=== PATIENT | female | born 1955 | race Caucasian/White ===

== ENCOUNTER 2018-08-17 06:31 | Day surgery (SDC) | payer OTHER ==
--- NOTE | 2018-08-16 13:27 | PREOPHP ---
DATE OF ADMISSION: 08/17/2018 HISTORY OF PRESENT ILLNESS: This 63-year-old patient is admitted for elective cataract surgery of th e left eye. The patient previously has had retinal tear and vitreous hemorrhage requiring vitrectomy to be performed on the left eye. This caused the patient to develop a secondary cataract in that ey e. The patient denies prior history of eye disease or injury. PAST MEDICAL HISTORY: The patient does have a history of diabetes mellitus, systemic hypertension, G ERD, hypercholesterolemia and problems with her bladder. CURRENT LIST OF MEDICATIONS: Includes: 1. Jardiance. 2. Aspirin (discontinued 1 week prior to surgery). 3. Amlodipine. 4. Atenolol. 5. Benazepril. 6. Furosemide. 7. Folic acid. 8. Omeprazole. 9. Simvastatin. 10. Oxybutynin. ALLERGIES: THE PATIENT IS ALLERGIC TO: 1. SULFACETAMIDE. 2. PENICILLIN. 3. BACTRIM. PHYSICAL EXAMINATION: The visual acuity with best correction is 20/25 in the right eye and 20/50 in the left eye. Slit lamp examination reveals nuclear sclerotic cataract in the left eye. Applanation tonometry is 17 mmHg. Examination of the retina does not reveal the presence of any diabetic retino brandt. DIAGNOSIS: Nuclear sclerotic cataract, left eye. PLAN: Cataract extraction with lens implant, left eye. The risks and alternatives to the surgery blue ve been discussed with the patient as well as the hope for improvement of visual acuity leading to gr eater ability to perform activities of daily living. Dictated By: ALVAREZ GODINEZ/AMANDA Conf#: [id number] DID#: [id number]
[~2018-08-17] VITALS: Ht 157.5 cm; Wt 81.7 kg
[2018-08-17] VITALS (9 sets, daily range): BP systolic 89–106; BP diastolic 55–70; PULSE 52–67; RESP 16–18; Ht 157.5 cm; Wt 81.7 kg
[~2018-08-17 06:31] MED LIST: AMLO-147 PO; ATEN-51 PO; BENA20TA4 PO; CYCLOPENTOLATE/PHENYLEPH 2 ML OPH OPER SCH; DICLOFENAC 0.1% 2.5 ML OPH OPER SCH; DOCO100C PO; FOLI-49 PO; FURO40TA4 PO; MOXIFLOXACIN 0.5% 3 ML OPH OPER SCH; OMEG-135 PO; OMEP20CA16 PO; OXYB5TAB7 PO; SIMV5TAB14 PO; TROPICAMIDE 1% 15 ML OPH OPER SCH; [UNRECOGNIZED DRUG - CODE] PO
[2018-08-17] MEDS: SOD CHLORIDE 0.9% 1,000 ML IV SCH ×2 (07:00→09:17)
[2018-08-17] MEDS ORDERED: AMLO5TAB4 PO (08:00)
[2018-08-17] MEDS ORDERED: ATEN-51 PO (08:00)
[2018-08-17] MEDS ORDERED: BENA20TA4 PO (08:00)
[2018-08-17] MEDS ORDERED: EMPA10TA PO (08:01)
[2018-08-17] MEDS ORDERED: FOLI-49 PO (08:01)
[2018-08-17] MEDS ORDERED: ASPI81TA52 PO (08:01)
[2018-08-17] MEDS ORDERED: OMEP40CA6 PO (08:02)
[2018-08-17] MEDS ORDERED: SIMV20TA PO (08:02)
[2018-08-17] MEDS ORDERED: OXYB5TAB7 PO (08:03)
[2018-08-17] MEDS ORDERED: TETRACAINE 0.5% 4 ML OPH ONE (08:18)
[2018-08-17] MEDS ORDERED: DEXAMETHASONE 4 MG/ML 1 ML INJ ONE (08:18)
[2018-08-17] MEDS ORDERED: GENTAMICIN 80 MG INJ ONE (08:18)
[2018-08-17] MEDS ORDERED: NA HYALURONATE/CHONDROITIN 0.5 ML SYG ONE (08:18)
[2018-08-17] MEDS ORDERED: LIDOCAINE 4% (MPF) 5 ML INJ ONE (08:18)
[2018-08-17] MEDS ORDERED: CARBACHOL 0.01% 1.5 ML OPH INJ ONE (08:18)
--- NOTE | 2018-08-17 08:23 | PREAC ---
Date/Time of Note Date/Time of Note DATE: 08/17/18 TIME: 08:21 Anesthesia Eval and Record Evaluation Time Pre-Procedure Interview DATE: 08/17/18 TIME: 08:21 Age 63 Sex female NPO: 8 hrs Preoperative diagnosis left cataract Planned procedure left cataract extraction Past Medical History Past Medical History: Includes Cardio: HTN, Dyslipidemia Endo: Diabetes Neuro: CVA Surgery & Anesthesia Issues No known issue Meds Anticoagulation: No Beta Reggie within 24 hr: Yes Reported Medications Oxybutynin Chloride* (Ditropan*) 5 Mg Tab, 5 MG PO BID, TAB 08/17/18 Simvastatin* (Zocor*) 20 Mg Tablet, 20 MG PO QHS, #30 TAB 08/17/18 Omeprazole* (Omeprazole*) 40 Mg Capsule.dr, 40 MG PO DAILY, #30 CAP 08/17/18 Folic Acid* (Folic Acid*) 1 Mg Tablet, 1 MG PO DAILY, TAB 08/17/18 Empagliflozin (Jardiance) 10 Mg Tablet, 10 MG PO DAILY, TAB 08/17/18 Aspirin (Low Dose Aspirin) 81 Mg Tablet.dr, 81 MG PO DAILY, #30 TAB 08/17/18 Amlodipine Besylate* (Norvasc*) 5 Mg Tablet, 5 MG PO BID, TAB 08/17/18 Benazepril Hcl* (Benazepril Hcl*) 20 Mg Tablet, 20 MG PO DAILY, #30 TAB 08/17/18 Atenolol* (Atenolol*) 25 Mg Tablet, 25 MG PO DAILY, #30 TAB 08/17/18 Discontinued Reported Medications [place]-3/Dha/Epa/Fish Oil (Epa-Dha 720 Softgel) 1 Each Capsule, 360 MG PO DAILY 12/12/14 Docosahexanoic Acid (DHA) 100 Mg Capsule, 240 MG PO DAILY 12/12/14 Fish Oil* (Fish Oil*) 1,000 Mg Cap, 1200 MG PO BID, CAP 12/12/14 Folic Acid* (Folic Acid*) 1 Mg Tablet, 1 MG PO DAILY, TAB 12/12/14 Furosemide* (Furosemide*) 40 Mg Tablet, 40 MG PO DAILY, TAB 12/12/14 Benazepril Hcl* (Benazepril Hcl*) 20 Mg Tablet, 20 MG PO DAILY, TAB 12/12/14 Simvastatin* (Simvastatin*) 5 Mg Tablet, 5 MG PO HS, TAB 12/12/14 Atenolol* (Atenolol*) 25 Mg Tablet, 25 MG PO DAILY, TAB 12/12/14 Oxybutynin Chloride* (Ditropan*) 5 Mg Tablet, 5 MG PO BID, TAB 12/12/14 Omeprazole* (Omeprazole*) 20 Mg Capsule.dr, 20 MG PO DAILY, CAP 12/12/14 Amlodipine Besylate* (Amlodipine Besylate*) 10 Mg Tablet, 10 MG PO DAILY, TAB 12/12/14 Current Medications Diclofenac Sodium (Voltaren 0.1%) 1 drop Q5 MIN X 3 OPER Last administered on 08/17/18at 07:32; Admin Dose 1 DROP; Start 08/17/18 at 06:30; Stop 08/17/18 at 20:00 Tropicamide (Mydriacyl 1%) 1 drop Q5 MIN X3 OPER Last administered on 08/17/18at 07:31; Admin Dose 1 DROP; Start 08/17/18 at 06:30; Stop 08/17/18 at 20:00 Moxifloxacin HCl (Vigamox) 1 drop Q5 MIN X 3 OPER Last administered on 08/17/18at 07:32; Admin Dose 1 DROP; Start 08/17/18 at 06:30; Stop 08/17/18 at 20:00 Cyclopentolate/ Phenylephrine (Cyclomydril Oph 2 ml) 1 drop Q5 MIN X 3 OPER Last administered on 08/17/18at 07:32; Admin Dose 1 DROP; Start 08/17/18 at 06:30; Stop 08/17/18 at 20:00 Sodium Chloride 1,000 ml @ 25 mls/hr Q24H IV Last administered on 08/17/18at 07:00; Admin Dose 25 MLS/HR; Start 08/17/18 at 06:30; Stop 08/17/18 at 20:00 Meds reviewed: Yes Allergies Coded Allergies: Penicillins (Verified Allergy, Unknown, 08/17/18) Sulfa (Sulfonamide Antibiotics) (Verified Allergy, Unknown, 08/17/18) erythromycin base (Verified Allergy, Unknown, 08/17/18) sulfamethoxazole (Verified Allergy, Unknown, 08/17/18) tetracycline (Verified Allergy, Unknown, 08/17/18) trimethoprim (Verified Allergy, Unknown, 08/17/18) Allergies Reviewed: Yes Labs/Studies Labs Reviewed: Reviewed by anesthesiologist test: N/A Pre-procedure Exam Last vitals Vital Signs Date Temp Pulse Resp B/P (MAP) Pulse Ox O2 O2 Flow FiO2 Time Delivery Rate 08/17/18 97.8 67 18 92/55 (67) 93 Room Air 08:01 Airway: Adequate mouth opening, Adequate thyromental dist Mallampati: Mallampati I Teeth: Normal Lung: Normal Heart: Normal ASA Physical Status ASA physical status: 3 Emergency: None Planned Anesthetic General/MAC: MAC Planned Pain Management Parenteral pain med Pre-operative Attestations Prior to commencing anesthesia and surgery, the patient was re-evaluated, there was verification of: *The patient's identity *The results of appropriate recent lab work and preoperative vital signs *The above evaluation not changing prior to induction *Anesthetic plan, risk benefits, alternative and complications discussed with patient/family; questions answered; patient/family understands, accepts and wishes to proceed. BALDEMAR LORENZO Aug 17, 2018 08:23
[2018-08-17] MEDS ORDERED: PROPOFOL 20 ML ONE (08:26)
[2018-08-17] MEDS ORDERED: LIDOCAINE 2% (SDV) 5 ML INJ ONE (08:26)
--- NOTE | 2018-08-17 09:17 | SIPON ---
Date/Time of Note Date/Time of Note DATE: 08/17/18 TIME: 09:16 Operative Report Preoperative Diagnosis nuclear cataract os Postoperative Diagnosis same Operation/Procedure Performed cataract extraction with lens implant os Surgeon alvarez izaguirre assistant auto center manager none Anesthesia: MAC Estimated blood loss: none Transfusion Required none Specimen none Grafts/Implants posterior chamber lens implant Complications none ALVAREZ IZAGUIRRE MD Aug 17, 2018 09:17
--- NOTE | 2018-08-17 09:20 | PAC ---
Date/Time of Note Date/Time of Note DATE: 08/17/18 TIME: 09:19 Post-Anesthesia Notes Post-Anesthesia Note Last documented vital signs Vital Signs Date Temp Pulse Resp B/P (MAP) Pulse Ox O2 O2 Flow FiO2 Time Delivery Rate 08/17/18 97.8 67 18 92/55 (67) 93 Room Air 0920 Activity: WNL Respiratory function: WNL Cardiovascular function: WNL Mental status: Baseline Pain reasonably controlled: Yes Hydration appropriate: Yes Nausea/Vomiting absent: Yes BALDEMAR LORENZO Aug 17, 2018 09:20
[2018-08-17] MEDS ORDERED: MEPERIDINE 25 MG INJ IV PRN (09:30)
[2018-08-17] MEDS ORDERED: LABETALOL HCL 20MG INJ IV PRN (09:30)
[2018-08-17] MEDS ORDERED: EPHEDrine SULFATE 50 MG/5 ML SYG IV PRN (09:30)
[2018-08-17] MEDS ORDERED: FENTAnyl 50 MCG/ML VIAL IV PRN ×3 (09:30)
[2018-08-17] MEDS ORDERED: OXYCODONE/ACETAMINOPHEN (5/325) TAB PO PRN ×2 (09:30)
[2018-08-17] MEDS ORDERED: hydrALAzine 20 MG INJ IV PRN (09:30)
[2018-08-17] MEDS ORDERED: ONDANSETRON 4 MG INJ IV PRN (09:30)
[2018-08-17] MEDS ORDERED: MIDAZOLAM 1 MG/ML 2 ML INJ IV PRN (09:30)
--- NOTE | 2018-08-17 09:32 | OPR ---
DATE OF OPERATION: 08/17/2018 PREOPERATIVE DIAGNOSIS: Nuclear sclerotic cataract, left eye. POSTOPERATIVE DIAGNOSIS: Nuclear sclerotic cataract, left eye. OPERATION PERFORMED: Cataract extraction with lens implant, left eye. SURGEON: Alvarez Izaguirre M.D. ANESTHESIOLOGIST: Dr. Torres. ANESTHESIA: Local standby. PROCEDURE: The patient was brought to the operating room and placed on the table with an IV in place and the patient attached to an monitoring analyst. Oxygen was given via face mask. After some intravenous sedation was administered, local anesthesia was given using Xylocaine 2% with epinephrine, mixed with Marcaine 0.5%. This was given in a lid block and retrobulbar injection. The patient was then prepped and draped in the usual sterile manner. A wire lid speculum was inserted between the lids of the left eye. A Superblade was used to enter th e anterior chamber at the corneoscleral limbus at the 10:30 o'clock position. A separate incision wa s made using a 3.0-mm keratome which entered the corneoscleral junction at the 12 o'clock position. Through this 3-mm opening, an irrigating cystotome was introduced into the anterior chamber. The romie mber was filled with Viscoat and an anterior capsulotomy was performed. Balanced salt solution was t hen used for hydrodissection of the lens. A phacoemulsification handpiece was then brought into the field and introduced into the anterior chamber. The lens nucleus was emulsified using a deep groove and cracking the nucleus into quadrants. Following this, each quadrant was aspirated and emulsified at the pupillary margin. After this was completed, the irrigation/aspiration handpiece was brought to the field, introduced in to the posterior chamber, and the lens cortical material was removed. When this was completed, addit ional Viscoat was injected into the anterior and posterior chambers. The 3-mm opening had its internal lips enlarged, and then the posterior chamber intraocular lens bobby uring 19.5 diopters ([employer] Model LI61AO) was then injected into the posterior c hamber using the lens injector system. After the leading haptic was introduced into the capsular bag and the lens optic was present in the center of the eye, the injector was removed and the trailing h aptic was grasped with non-toothed forceps and introduced into the capsular fold superiorly. A [place] ey hook was then used to rotate the intraocular lens so that the lips were oriented in the horizontal meridian. One 10-0 nylon suture was placed across the wound. Prior to tying, the irrigation/aspiration handpiece was reintroduced into the anterior chamber to rem ove the Viscoat. Miochol was instilled to constrict the pupil, and then the 10-0 nylon suture was ti ed. The ends were cut short and then the knot was buried. Then, 0.5 mL of dexamethasone and 0.5 mL of gentamicin were injected into the sub-Tenon space in the inferior fornix. Ciloxan drops were then placed on the surface of the eye. The speculum was removed and a patch was applied. The patient then left the operating room in satisfactory condition. Dictated By: ALVAREZ GODINEZ/AMANDA Conf#: [id number] DID#: [id number] CC: ALVAREZ IZAGUIRRE MD;*EndCC*
== END 2018-08-17 10:52 | disposition home or self-care (01) ==
LOC: SDS 06:31
PROVIDERS: ATTEND Ophthalmology
DX: H25.12 Age-related nuclear cataract, left eye (principal); I10 Essential (primary) hypertension; E11.9 Type 2 diabetes mellitus without complications; Z86.73 Personal history of transient ischemic attack (TIA), and cerebral infarction without residual deficits; Z79.82 Long term (current) use of aspirin
CPT/HCPCS: 66984; 82962; J1100; J1580; V2632; Z7512; Z7610

== ENCOUNTER 2018-09-21 06:20 | Day surgery (SDC) | payer OTHER ==
--- NOTE | 2018-09-14 08:14 | PREOPHP ---
DATE OF ADMISSION: 09/14/2018 HISTORY OF PRESENT ILLNESS: This 63-year-old patient is admitted for elective removal of residual ca taract following surgery on the left eye 4 weeks ago. The patient underwent uneventful surgery. How ever, following surgery, it was noted that there was lens cortical material left in the left eye whic h was occluding the pupillary aperture and decreasing the patient's vision. The patient does not com plain of any pain or discomfort involving the left eye. The patient's systemic history is positive f or hypertension, hypercholesterolemia, and diabetes mellitus. CURRENT MEDICATIONS: Includes: 1. Atenolol. 2. Simvastatin. 3. Benazepril. 4. Jardiance. ALLERGIES: THERE ARE NO KNOWN ALLERGIES. PHYSICAL EXAMINATION: Visual acuity is 20/25 in the right eye and 20/400 in the left eye. Slit lamp examination of the right eye is entirely within normal limits. Examination of the left eye reveals a posterior chamber intraocular lens in appropriate position with the lens cortical material located behind the optic of the posterior chamber intraocular lens. Applanation tonometry is 12 mm. Examina tion of the retina is not possible due to the residual lens material. DIAGNOSIS: Retained lens cortical material, left eye. PLAN: Aspiration of lens cortical material, left eye. The risks and alternatives to the surgery hav e been discussed with the patient and the patient has opted to proceed with surgery in hopes of obtai rusty improved visual acuity leading to greater ability to perform activities of daily living. Dictated By: ALVAREZ GODINEZ/AMANDA Conf#: [id number] DID#: [id number]
[~2018-09-21] VITALS: Ht 154.9 cm; Wt 82.2 kg
[2018-09-21] VITALS (9 sets, daily range): BP systolic 91–107; BP diastolic 52–70; PULSE 60–72; RESP 16–29; Ht 154.9 cm; Wt 82.2 kg
[~2018-09-21 06:20] MED LIST changes: -AMLO-147 PO; +AMLO5TAB4 PO; +ASPI81TA52 PO; -DOCO100C PO; +EMPA10TA PO; -FURO40TA4 PO; -OMEG-135 PO; -OMEP20CA16 PO; +OMEP40CA6 PO; +SIMV20TA PO; -SIMV5TAB14 PO; +SOD CHLORIDE 0.9% 1,000 ML IV SCH; -[UNRECOGNIZED DRUG - CODE] PO
[2018-09-21] MEDS ORDERED: DICLOFENAC 0.1% 2.5 ML OPH OPER SCH (08:00)
[2018-09-21] MEDS ORDERED: MOXIFLOXACIN 0.5% 3 ML OPH OPER SCH (08:00)
[2018-09-21] MEDS ORDERED: CYCLOPENTOLATE/PHENYLEPH 2 ML OPH OPER SCH (08:00)
[2018-09-21] MEDS ORDERED: SOD CHLORIDE 0.9% 1,000 ML IV SCH (08:00)
[2018-09-21] MEDS ORDERED: TROPICAMIDE 1% 15 ML OPH OPER SCH (08:00)
--- NOTE | 2018-09-21 09:39 | HPN ---
Date/Time of Note Date/Time of Note DATE: 09/21/18 TIME: 09:39 Interval H&P Admission Note Pt. seen H&P reviewed: No system changes ALVAREZ IZAGUIRRE MD Sep 21, 2018 09:39
--- NOTE | 2018-09-21 09:44 | PREAC ---
Date/Time of Note Date/Time of Note DATE: 09/21/18 TIME: 09:42 Anesthesia Eval and Record Evaluation Time Pre-Procedure Interview DATE: 09/21/18 TIME: 09:42 Age 63 Sex female NPO: 8 hrs Preoperative diagnosis Lt eye lense residual Planned procedure Lt eye removal of lense residual Past Medical History Past Medical History: Includes Cardio: HTN, Dyslipidemia GI: GERD, Morbid obesity Surgery & Anesthesia Issues No known issue Meds Anticoagulation: Yes Beta Reggie within 24 hr: Yes Reported Medications Oxybutynin Chloride* (Ditropan*) 5 Mg Tab, 5 MG PO BID, TAB 08/17/18 Simvastatin* (Zocor*) 20 Mg Tablet, 20 MG PO QHS, #30 TAB 08/17/18 Omeprazole* (Omeprazole*) 40 Mg Capsule.dr, 40 MG PO DAILY, #30 CAP 08/17/18 Folic Acid* (Folic Acid*) 1 Mg Tablet, 1 MG PO DAILY, TAB 08/17/18 Empagliflozin (Jardiance) 10 Mg Tablet, 10 MG PO DAILY, TAB 08/17/18 Aspirin (Low Dose Aspirin) 81 Mg Tablet.dr, 81 MG PO DAILY, #30 TAB 08/17/18 Amlodipine Besylate* (Norvasc*) 5 Mg Tablet, 5 MG PO BID, TAB 08/17/18 Benazepril Hcl* (Benazepril Hcl*) 20 Mg Tablet, 20 MG PO DAILY, #30 TAB 08/17/18 Atenolol* (Atenolol*) 25 Mg Tablet, 25 MG PO DAILY, #30 TAB 08/17/18 Current Medications Diclofenac Sodium (Voltaren 0.1%) 1 drop Q5 MIN X 3 OPER Last administered on 09/21/18at 08:13; Admin Dose 1 DROP; Start 09/21/18 at 08:00 Tropicamide (Mydriacyl 1%) 1 drop Q5 MIN X3 OPER Last administered on 09/21/18at 08:14; Admin Dose 1 DROP; Start 09/21/18 at 08:00 Moxifloxacin HCl (Vigamox) 1 drop Q5 MIN X 3 OPER Last administered on 09/21/18at 08:13; Admin Dose 1 DROP; Start 09/21/18 at 08:00 Cyclopentolate/ Phenylephrine (Cyclomydril Oph 2 ml) 1 drop Q5 MIN X 3 OPER L ast administered on 09/21/18at 08:13; Admin Dose 1 DROP; Start 09/21/18 at 08:00 Sodium Chloride 1,000 ml @ 25 mls/hr Q24H IV Last administered on 09/21/18at 08:13; Admin Dose 25 MLS/HR; Start 09/21/18 at 08:00 Meds reviewed: Yes Allergies Coded Allergies: Penicillins (Verified Allergy, Unknown, 09/21/18) Sulfa (Sulfonamide Antibiotics) (Verified Allergy, Unknown, 09/21/18) erythromycin base (Verified Allergy, Unknown, 09/21/18) sulfamethoxazole (Verified Allergy, Unknown, 09/21/18) tetracycline (Verified Allergy, Unknown, 09/21/18) trimethoprim (Verified Allergy, Unknown, 09/21/18) Allergies Reviewed: Yes Labs/Studies Labs Reviewed: Reviewed by anesthesiologist Result Diagram: 09/21/18 0745 Laboratory Tests 09/21/18 07:45 test: N/A Studies: ECG Pre-procedure Exam Last vitals Vital Signs Date Temp Pulse Resp B/P (MAP) Pulse Ox O2 O2 Flow FiO2 Time Delivery Rate 09/21/18 97.6 71 16 104/57 93 Room Air 08:25 (73) Airway: Adequate mouth opening, Adequate thyromental dist Mallampati: Mallampati III Teeth: Normal Lung: Normal Heart: Normal ASA Physical Status ASA physical status: 3 Emergency: None Planned Anesthetic General/MAC: MAC Planned Pain Management Single shot nerve block, Parenteral pain med Pre-operative Attestations Prior to commencing anesthesia and surgery, the patient was re-evaluated, there was verification of: *The patient's identity *The results of appropriate recent lab work and preoperative vital signs *The above evaluation not changing prior to induction *Anesthetic plan, risk benefits, alternative and complications discussed with patient/family; questions answered; patient/family understands, accepts and wishes to proceed. JACOB JOSHI MD Sep 21, 2018 09:44
[2018-09-21] MEDS ORDERED: MIDAZOLAM 1 MG/ML 2 ML INJ ONE (09:45)
[2018-09-21] MEDS ORDERED: FENTAnyl 50 MCG/ML VIAL ONE (09:45)
[2018-09-21] MEDS ORDERED: PROPOFOL 20 ML ONE (10:16)
[2018-09-21] MEDS ORDERED: LIDOCAINE 2% (SDV) 5 ML INJ ONE (10:16)
[2018-09-21] MEDS ORDERED: GENTAMICIN 80 MG INJ ONE (10:26)
[2018-09-21] MEDS ORDERED: CARBACHOL 0.01% 1.5 ML OPH INJ ONE (10:26)
[2018-09-21] MEDS ORDERED: LIDOCAINE 4% (MPF) 5 ML INJ ONE (10:26)
[2018-09-21] MEDS ORDERED: NA HYALURONATE/CHONDROITIN 0.5 ML SYG ONE (10:26)
[2018-09-21] MEDS ORDERED: DEXAMETHASONE 4 MG/ML 1 ML INJ ONE (10:26)
--- NOTE | 2018-09-21 10:26 | SIPON ---
Date/Time of Note Date/Time of Note DATE: 09/21/18 TIME: 10:25 Operative Report Preoperative Diagnosis retained lesn cortical material od Postoperative Diagnosis same Operation/Procedure Performed aspiration of lens cortical material Surgeon alvarez izaguirre customer assistance associate none Anesthesia: MAC Estimated blood loss: none Transfusion Required none Specimen none Grafts/Implants none Complications none ALVAREZ IZAGUIRRE MD Sep 21, 2018 10:26
--- NOTE | 2018-09-21 10:26 | PAC ---
Date/Time of Note Date/Time of Note DATE: 09/21/18 TIME: 10:25 Post-Anesthesia Notes Post-Anesthesia Note Last documented vital signs Vital Signs Date Temp Pulse Resp B/P (MAP) Pulse Ox O2 O2 Flow FiO2 Time Delivery Rate 09/21/18 97.6 71 16 104/57 93 Room Air 08:25 (73) Activity: WNL Respiratory function: WNL Cardiovascular function: WNL Mental status: Baseline Pain reasonably controlled: Yes Hydration appropriate: Yes Nausea/Vomiting absent: Yes Comments BP:122/67, P:78, SPo2:100%, T:98,8 JACOB JOSHI MD Sep 21, 2018 10:26
[2018-09-21] MEDS ORDERED: FENTAnyl 50 MCG/ML VIAL IV PRN (10:30)
[2018-09-21] MEDS ORDERED: HYDROmorphONE 1 MG/5 ML IV SYRINGE IV PRN ×2 (10:30)
[2018-09-21] MEDS ORDERED: LABETALOL HCL 20MG INJ IV PRN (10:30)
[2018-09-21] MEDS ORDERED: ONDANSETRON 4 MG INJ IV PRN (10:30)
[2018-09-21] MEDS ORDERED: DIPHENHYDRAMINE 50 MG INJ IV PRN (10:30)
[2018-09-21] MEDS ORDERED: MEPERIDINE 25 MG INJ IV PRN (10:30)
--- NOTE | 2018-09-21 14:37 | OPR ---
DATE OF OPERATION: 09/21/2018 PREOPERATIVE DIAGNOSIS: Retained lens cortical material, left eye. POSTOPERATIVE DIAGNOSIS: Retained lens cortical material, left eye. OPERATION PERFORMED: Aspiration of lens cortical material, left eye. SURGEON: Alvarez Liu MD ANESTHESIOLOGIST: Nehemias Duke MD DESCRIPTION OF PROCEDURE: The patient was brought to the operating room 5 weeks after undergoing cat aract surgery of the left eye. The patient was noted during the postoperative period to have retaine d lens cortical material which after becoming hydrated by the aqueous humor became floppy and complet andreina coated the posterior capsule behind the lens implant. After a period of time, it was noted that this was not resolving on its own and therefore, it was decided to return to the operating room to as pirate the lens cortical material. The patient was brought to the operating room and then an eye gur guilherme attached to electrocardiogram monitoring, given oxygen via nasal cannula. After some intravenous sedation was administered, the patient received retrobulbar injection using lidocaine 4% given in li d block and retrobulbar injection. The patient was then prepped and draped in the usual sterile khan er. A speculum was inserted between the lids of the left eye. It was noted that the pupil had not d ilated beyond 4 mm and therefore access to the lens cortical material would be difficult without mech anically dilating the pupils beyond its current state. Three paracentesis incisions were made using a Superblade. These incisions were made through clear cornea at the 12, 3 and 9 o'clock positions. Through these openings, silicone iris hooks were inserted to retract the pupil enlarging the aperture and allowing for ability to access the lens cortical material behind the lens implant. Viscoat was injected into the anterior chamber and behind the pupil to allow for access. Two additional paracent esis incisions were made at the 11 and 1 o'clock positions through clear cornea using a Superblade. Through these openings, a bimanual technique was created with 1 port used for irrigation and the othe r port for aspiration. The aspirating handpiece was inserted with the tip placed posterior to the le ns optic and aspirating of the lens cortical material present throughout the posterior capsular area. At the end of this procedure, it was noted that the lens cortex was removed; however, there was dennys e fibrosis of the posterior lens capsule. It was decided not to attempt to do further aspiration and instead await for the postoperative inflammation to subside and then for patient to undergo YAG lase r capsulotomy. The 3 iris hooks were removed from the eye. It was noted that all the paracentesis i ncisions appeared to be watertight. The vitreous was aspirated from the anterior chamber. The specu lum was then removed and then 0.5 mL of and gentamicin and 0.5 mL of dexamethasone were injected thro ugh the lower lid into the peribulbar space. Following this, a Vigamox drops were placed on the eye and then the eye was patched and the patient left the operating room in satisfactory condition. Dictated By: ALVAREZ GODINEZ/AMANDA Conf#: [id number] DID#: [id number]
== END 2018-09-21 11:34 | disposition home or self-care (01) ==
LOC: SDS 06:20
PROVIDERS: ATTEND Ophthalmology
DX: H59.022 Cataract (lens) fragments in eye following cataract surgery, left eye (principal); Y77.3 Surgical instruments, materials and ophthalmic devices (including sutures) associated with adverse incidents; Y83.8 Other surgical procedures as the cause of abnormal reaction of the patient, or of later complication, without mention of misadventure at the time of the procedure; I10 Essential (primary) hypertension; E78.5 Hyperlipidemia, unspecified; Z79.82 Long term (current) use of aspirin; E66.9 Obesity, unspecified; Z68.34 Body mass index [BMI] 34.0-34.9, adult
CPT/HCPCS: 66840; 81001; 82962; 85025; 85610; 85730; J1100; J1580; J2250; J3010; Z7512; Z7610; 81003